=== PATIENT | female | born 1985 | race Two or more races ===

== ENCOUNTER 2021-05-26 16:10 | Emergency (ER) | payer MEDICAID ==
[~2021-05-26] VITALS: Ht 154.9 cm; Wt 81.6 kg
[2021-05-26 16:32] LABS: Basophils # (auto) 0 10 ^3/uL (0-0.2); Basophils % (auto) 0.6 % (0.0-2.0); Eosinophils # (auto) 0 10 ^3/uL (0-0.8); Eosinophils % (auto) 0.1 % (0.0-7.0); Hematocrit 40.5 % (36.0-46.0); Hemoglobin 13.8 g/dL (12.2-16.2); Lymphocytes % (auto) 25.7 % (10.0-50.0); Mean Corpuscular Hemoglobin 29.1 pg (28.0-32.0); Mean Corpuscular Volume 85.5 fL (80.0-100.0); Monocytes # (auto) 0.2 10 ^3/uL (0-1.3); Monocytes % (auto) 5.4 % (0.0-12.0); Neutrophils # (auto) 2.7 10 ^3/uL (1.6-8.6); Neutrophils % (auto) 68.2 % (37.0-80.0); Nucleated Red Blood Cells % 0.3 %; Red Blood Cells 4.74 10^6/uL (4.0-5.20)
[2021-05-26 16:50] LABS: Albumin 2.8 g/dL (3.4-5.0); BUN/Creatinine Ratio 11.1; Calcium 8.4 mg/dL (8.5-10.1)
[2021-05-26 16:59] LABS: Bilirubin, Total 0.8 mg/dL (0.2-1.0); CRP High Sensitivity 9.4 mg/dL (< 0.3); Total Protein 6.8 g/dL (6.4-8.2)
[2021-05-26 18:36] VITALS: BP 128/81
== END 2021-05-26 18:39 | disposition home or self-care (01) ==
LOC: ER 16:13
DX: U07.1 COVID-19 (principal); J12.82 Pneumonia due to coronavirus disease 2019
CPT/HCPCS: 36415; 71045; 80053; 82728; 84484; 85025; 86141; 87426; 93005

== ENCOUNTER 2021-05-29 03:35 | Inpatient (IN) | payer MEDICAID ==
[~2021-05-29] VITALS: Ht 154.9 cm; Wt 82.4 kg
[2021-05-29] MEDS ORDERED: ACETAMINOPHEN 650 mg PER 20.3 mL UD PO ONE (03:45)
[2021-05-29] MEDS ORDERED: AZITHROMYCIN 500MG/ 250ML 250 ML IV ONE (05:30)
[2021-05-29] MEDS ORDERED: DexAMETHasone SOD PHOS 10MG/1ML VIAL INJ IV ONE (05:30)
[2021-05-29 05:51] LABS: Basophils # (auto) 0 10 ^3/uL (0-0.2); Basophils % (auto) 0.1 % (0.0-2.0); Eosinophils # (auto) 0 10 ^3/uL (0-0.8); Hematocrit 37.3 % (36.0-46.0); Hemoglobin 12.8 g/dL (12.2-16.2); Lymphocytes # (auto) 0.9 10 ^3/uL (0.4-5.4); Lymphocytes % (auto) 11.8 % (10.0-50.0); Mean Corpuscular Hemoglobin 29.1 pg (28.0-32.0); Mean Corpuscular Hgb Conc. 34.4 g/dL (32.0-36.0); Mean Corpuscular Volume 84.5 fL (80.0-100.0); Monocytes # (auto) 0.3 10 ^3/uL (0-1.3); Monocytes % (auto) 4.5 % (0.0-12.0); Neutrophils # (auto) 6.1 10 ^3/uL (1.6-8.6); Neutrophils % (auto) 83.6 % (37.0-80.0); Red Blood Cells 4.41 10^6/uL (4.0-5.20); Red Cell Distribution Width 12.8 % (11.8-14.3); White Blood Cell 7.3 10^3/uL (4.4-10.8)
[2021-05-29 06:01] LABS: INR 0.94 (0.9-1.15)
[2021-05-29 06:12] LABS: Alanine Aminotransferase 70 U/L (13-56); Albumin 2.5 g/dL (3.4-5.0); Anion Gap 9 (5-15); Aspartate Aminotransferase 65 U/L (15-37); Blood Urea Nitrogen 9 mg/dL (7-18); Calcium 7.9 mg/dL (8.5-10.1); Carbon Dioxide 25 mmol/L (21-32); Chloride 104 mmol/L (98-107); Glucose 121 mg/dL (74-106); Magnesium 2.1 mg/dL (1.6-2.6); Potassium 3.3 mmol/L (3.5-5.1); Sodium 138 mmol/L (136-145)
[2021-05-29 06:14] LABS: Lactic Acid w/Reflex 2.5 mmol/L (0.4-2.0)
[2021-05-29 06:21] LABS: Alkaline Phosphatase 54 U/L (45-117); BUN/Creatinine Ratio 10.5; CRP High Sensitivity 7.83 mg/dL (< 0.3); GFR African American 95 mL/min; GFR Non-African American 79 mL/min; Total Protein 6.6 g/dL (6.4-8.2)
[2021-05-29] MEDS ORDERED: LACTATED RINGER'S 1,000 ML IV ONE (07:00)
[2021-05-29] MEDS ORDERED: MORPHINE SULFATE INJECTION 2 MG/ML SYRG IV PRN (08:45)
[2021-05-29] MEDS ORDERED: POTASSIUM EFFERVESENT TAB 25 MEQ PO ONE (08:45)
[2021-05-29] MEDS ORDERED: REMDESIVIR PER PHARMACY 0 ML IV SCH (08:45)
[2021-05-29] MEDS ORDERED: NITROGLYCERIN 0.4 MG SL TAB SL PRN (08:45)
[2021-05-29] MEDS ORDERED: diphenhdrAMINE HCL 50 MG/1 ML VL IV PRN (08:45)
[2021-05-29] MEDS ORDERED: PROMETHAZINE HCL 25 MG/ML 1ML IV PRN (09:15)
[2021-05-29] MEDS ORDERED: DEXTROSE (50%) 50ML SYRG IV PRN (09:15)
[2021-05-29] MEDS ORDERED: LACTULOSE 20Gm/30ML SOLN PO PRN (09:15)
[2021-05-29] MEDS: BUDESONIDE (INHALATION) 180 MCG IH IN SCH ×2 (10:00→22:17)
[2021-05-29] MEDS ORDERED: ACCU-CHEK COMFORT CURVE STRIP VI SCH (11:30)
[2021-05-29] MEDS: ENOXAPARIN SOD 40 MG/0.4 ML SYRINGE SC SCH ×2 (11:56→21:36)
[2021-05-29] MEDS: CHOLECALCIFEROL (VITD3) 2,000 UNIT CAP/TAB PO SCH (11:57)
[2021-05-29] MEDS: IVERMECTIN 3 MG TAB PO SCH (11:58)
[2021-05-29] MEDS: ASCORBIC ACID 1,000 MG TAB PO SCH (11:58)
[2021-05-29] MEDS: FLORASTOR (S. BOULARDII) 250 MG CAP PO SCH ×2 (11:59→21:36)
[2021-05-29] MEDS: DexAMETHasone SOD PHOS 10MG/1ML VIAL INJ IV SCH (12:00)
[2021-05-29] MEDS: ZINC SULFATE 220mg CAP or TAB PO SCH (12:00)
[2021-05-29] MEDS: AZITHROMYCIN 500MG/ 250ML 250 ML IV SCH (12:02)
[2021-05-29] MEDS: ACETAMINOPHEN 500 MG TAB PO PRN (13:11)
[2021-05-29] MEDS ORDERED: REMDESIVIR 200 MG in NS 210ml LOADING DOSE ADULT IV ONE (15:00)
[2021-05-29 17:53] VITALS: BP 118/70
[2021-05-29 20:00] VITALS: BP 107/68
[2021-05-29] MEDS: traMADol HCL 50 MG TAB PO PRN (21:37)
[2021-05-29 22:00] VITALS: BP 107/98
[2021-05-29] MEDS: ALBUTEROL SULF HFA 90MCG INH 200DOSE IN PRN (22:17)
[2021-05-30] VITALS (10 sets, daily range): BP systolic 93–123; BP diastolic 50–66
[2021-05-30] MEDS: guaiFENesin-DM 100/10mg/5ml SYR PO PRN ×4 (02:29→22:30)
[2021-05-30] MEDS: ACETAMINOPHEN 500 MG TAB PO PRN ×2 (05:15→21:37)
[2021-05-30 06:19] LABS: Basophils # (auto) 0 10 ^3/uL (0-0.2); Basophils % (auto) 0.1 % (0.0-2.0); Eosinophils # (auto) 0 10 ^3/uL (0-0.8); Hematocrit 34.6 % (36.0-46.0); Lymphocytes # (auto) 1.1 10 ^3/uL (0.4-5.4); Lymphocytes % (auto) 11.7 % (10.0-50.0); Mean Corpuscular Hemoglobin 29.4 pg (28.0-32.0); Mean Corpuscular Hgb Conc. 34.6 g/dL (32.0-36.0); Mean Corpuscular Volume 85.1 fL (80.0-100.0); Monocytes # (auto) 0.4 10 ^3/uL (0-1.3); Monocytes % (auto) 3.9 % (0.0-12.0); Neutrophils # (auto) 8.2 10 ^3/uL (1.6-8.6); Neutrophils % (auto) 84.3 % (37.0-80.0); Nucleated Red Blood Cells % 0.1 %; Red Blood Cells 4.06 10^6/uL (4.0-5.20); White Blood Cell 9.7 10^3/uL (4.4-10.8)
[2021-05-30 06:35] LABS: Potassium 3.6 mmol/L (3.5-5.1)
[2021-05-30 06:41] LABS: Albumin 2.3 g/dL (3.4-5.0); BUN/Creatinine Ratio 13.3; Bilirubin, Total 0.8 mg/dL (0.2-1.0); Calcium 8.3 mg/dL (8.5-10.1); Total Protein 6.3 g/dL (6.4-8.2)
[2021-05-30] MEDS: ALBUTEROL SULF HFA 90MCG INH 200DOSE IN PRN (06:54)
[2021-05-30] MEDS: BUDESONIDE (INHALATION) 180 MCG IH IN SCH ×2 (06:54→22:00)
[2021-05-30] MEDS: DexAMETHasone SOD PHOS 10MG/1ML VIAL INJ IV SCH (08:44)
[2021-05-30] MEDS: cefTRIAXone 1GM/50ML D5W 50 ML IV SCH (08:44)
[2021-05-30] MEDS: ZINC SULFATE 220mg CAP or TAB PO SCH (08:44)
[2021-05-30] MEDS: FLORASTOR (S. BOULARDII) 250 MG CAP PO SCH (08:45)
[2021-05-30] MEDS: CHOLECALCIFEROL (VITD3) 2,000 UNIT CAP/TAB PO SCH (08:45)
[2021-05-30] MEDS: ASCORBIC ACID 1,000 MG TAB PO SCH (08:45)
[2021-05-30] MEDS: IVERMECTIN 3 MG TAB PO SCH (08:45)
[2021-05-30] MEDS: traMADol HCL 50 MG TAB PO PRN (08:46)
[2021-05-30] MEDS: ENOXAPARIN SOD 40 MG/0.4 ML SYRINGE SC SCH ×2 (08:46→21:36)
[2021-05-30] MEDS: AZITHROMYCIN 500MG/ 250ML 250 ML IV SCH (10:00)
[2021-05-30] MEDS: REMDESIVIR 100mg 100 MG in SODIUM CHL 0.9% 230 ML IV SCH (15:16)
[2021-05-30 20:32] LABS: Urine Bacteria NONE SEEN /hpf (None Seen); Urine Blood Negative /uL (Negative); Urine Mucus FEW (None Seen); Urine Specific Gravity 1.026 (1.001-1.035); Urine WBC 3 /hpf (0 - 5)
[2021-05-31 05:00] VITALS: BP 117/67
[2021-05-31] MEDS: ACETAMINOPHEN 500 MG TAB PO PRN (05:23)
[2021-05-31] MEDS: guaiFENesin-DM 100/10mg/5ml SYR PO PRN ×3 (05:24→18:00)
[2021-05-31 05:55] LABS: Potassium 3.7 mmol/L (3.5-5.1)
[2021-05-31 06:02] LABS: Albumin 2.2 g/dL (3.4-5.0); BUN/Creatinine Ratio 21.5; Bilirubin, Total 0.8 mg/dL (0.2-1.0); Calcium 8.4 mg/dL (8.5-10.1); Total Protein 6.4 g/dL (6.4-8.2)
[2021-05-31] MEDS: ALBUTEROL SULF HFA 90MCG INH 200DOSE IN PRN ×2 (06:50→22:51)
[2021-05-31] MEDS: BUDESONIDE (INHALATION) 180 MCG IH IN SCH ×2 (06:51→22:00)
[2021-05-31] MEDS: DexAMETHasone SOD PHOS 10MG/1ML VIAL INJ IV SCH (08:27)
[2021-05-31] MEDS: cefTRIAXone 1GM/50ML D5W 50 ML IV SCH (08:27)
[2021-05-31] MEDS: ZINC SULFATE 220mg CAP or TAB PO SCH (08:28)
[2021-05-31] MEDS: AZITHROMYCIN 500MG/ 250ML 250 ML IV SCH (08:28)
[2021-05-31] MEDS: ASCORBIC ACID 1,000 MG TAB PO SCH (08:29)
[2021-05-31] MEDS: CHOLECALCIFEROL (VITD3) 2,000 UNIT CAP/TAB PO SCH (08:29)
[2021-05-31] MEDS: IVERMECTIN 3 MG TAB PO SCH (08:29)
[2021-05-31] MEDS: ENOXAPARIN SOD 40 MG/0.4 ML SYRINGE SC SCH ×2 (08:30→21:30)
[2021-05-31 09:00] VITALS: BP 89/57
[2021-05-31 13:00] VITALS: BP 111/67
[2021-05-31] MEDS: REMDESIVIR 100mg 100 MG in SODIUM CHL 0.9% 230 ML IV SCH (15:02)
[2021-05-31] MEDS ORDERED: FUROSEMIDE 20 MG/2 ML VIAL IV ONE (16:30)
[2021-05-31] MEDS ORDERED: POTASSIUM EFFERVESENT TAB 25 MEQ PO ONE (16:30)
[2021-05-31 17:00] VITALS: BP 102/61
[2021-05-31 22:00] VITALS: BP 109/60
[2021-06-01] MEDS: ACETAMINOPHEN 500 MG TAB PO PRN ×3 (01:30→21:26)
[2021-06-01] MEDS: guaiFENesin-DM 100/10mg/5ml SYR PO PRN ×2 (01:30→20:05)
[2021-06-01 05:00] VITALS: BP 89/54
[2021-06-01 07:14] LABS: Potassium 3.5 mmol/L (3.5-5.1)
[2021-06-01 07:25] LABS: Albumin 2.3 g/dL (3.4-5.0); BUN/Creatinine Ratio 22.7; Bilirubin, Total 0.8 mg/dL (0.2-1.0); Calcium 8.6 mg/dL (8.5-10.1); Total Protein 6.4 g/dL (6.4-8.2)
[2021-06-01 09:00] VITALS: BP 92/48
[2021-06-01] MEDS: cefTRIAXone 1GM/50ML D5W 50 ML IV SCH (09:45)
[2021-06-01] MEDS: DexAMETHasone SOD PHOS 10MG/1ML VIAL INJ IV SCH (09:46)
[2021-06-01] MEDS: FUROSEMIDE 20 MG/2 ML VIAL IV SCH ×2 (09:47→11:45)
[2021-06-01] MEDS: AZITHROMYCIN 500MG/ 250ML 250 ML IV SCH (09:48)
[2021-06-01] MEDS: ZINC SULFATE 220mg CAP or TAB PO SCH (09:48)
[2021-06-01] MEDS: POTASSIUM EFFERVESENT TAB 25 MEQ PO SCH (09:48)
[2021-06-01] MEDS: CHOLECALCIFEROL (VITD3) 2,000 UNIT CAP/TAB PO SCH (09:49)
[2021-06-01] MEDS: ENOXAPARIN SOD 40 MG/0.4 ML SYRINGE SC SCH ×2 (09:49→21:26)
[2021-06-01] MEDS: ASCORBIC ACID 1,000 MG TAB PO SCH (09:49)
[2021-06-01] MEDS: BUDESONIDE (INHALATION) 180 MCG IH IN SCH ×2 (11:29→21:42)
[2021-06-01] MEDS: ALBUTEROL SULF HFA 90MCG INH 200DOSE IN PRN ×2 (11:29→21:42)
[2021-06-01 13:00] VITALS: BP 96/50
[2021-06-01] MEDS: REMDESIVIR 100mg 100 MG in SODIUM CHL 0.9% 230 ML IV SCH (14:43)
[2021-06-01 17:00] VITALS: BP 95/51
[2021-06-01 21:48] VITALS: BP 105/69
[2021-06-02] MEDS: guaiFENesin-DM 100/10mg/5ml SYR PO PRN ×3 (02:28→22:37)
[2021-06-02 05:00] VITALS: BP 100/55
[2021-06-02 06:41] LABS: Potassium 3.9 mmol/L (3.5-5.1)
[2021-06-02 06:50] LABS: Albumin 2.3 g/dL (3.4-5.0); BUN/Creatinine Ratio 14.3; Bilirubin, Total 1.4 mg/dL (0.2-1.0); Calcium 8.8 mg/dL (8.5-10.1); Total Protein 6.6 g/dL (6.4-8.2)
[2021-06-02] MEDS: BUDESONIDE (INHALATION) 180 MCG IH IN SCH ×2 (07:18→20:35)
[2021-06-02] MEDS: ALBUTEROL SULF HFA 90MCG INH 200DOSE IN PRN ×2 (07:18→20:35)
[2021-06-02] MEDS: ACETAMINOPHEN 500 MG TAB PO PRN ×2 (07:37→22:36)
[2021-06-02] MEDS: FUROSEMIDE 20 MG/2 ML VIAL IV SCH (08:11)
[2021-06-02] MEDS: DexAMETHasone SOD PHOS 10MG/1ML VIAL INJ IV SCH (08:11)
[2021-06-02] MEDS: ZINC SULFATE 220mg CAP or TAB PO SCH (08:12)
[2021-06-02] MEDS: POTASSIUM EFFERVESENT TAB 25 MEQ PO SCH (08:12)
[2021-06-02] MEDS: ASCORBIC ACID 1,000 MG TAB PO SCH (08:12)
[2021-06-02] MEDS: CHOLECALCIFEROL (VITD3) 2,000 UNIT CAP/TAB PO SCH (08:13)
[2021-06-02] MEDS: ENOXAPARIN SOD 40 MG/0.4 ML SYRINGE SC SCH (08:13)
[2021-06-02] MEDS: cefTRIAXone 1GM/50ML D5W 50 ML IV SCH (10:42)
[2021-06-02 12:00] VITALS: BP 104/58
[2021-06-02] MEDS ORDERED: SALINE 0.65 % NASAL SPRAY 45ML BOTTLE EACHNOSTRI ONE (12:15)
[2021-06-02] MEDS: AZITHROMYCIN 500MG/ 250ML 250 ML IV SCH (12:15)
[2021-06-02] MEDS: IVERMECTIN 3 MG TAB PO SCH (12:22)
[2021-06-02] MEDS: TOCILIZUMAB 400 MG in SODIUM CHL 0.9% 80 ML IV SCH (13:01)
[2021-06-02] MEDS: REMDESIVIR 100mg 100 MG in SODIUM CHL 0.9% 230 ML IV SCH (15:01)
[2021-06-02 15:55] VITALS: BP 93/51
[2021-06-02] MEDS: SALINE 0.65 % NASAL SPRAY 45ML BOTTLE EACHNOSTRI SCH ×2 (15:59→21:54)
[2021-06-02] MEDS: Ensure HIGH Protein Chocolate 8oz Bottle PO SCH (18:12)
[2021-06-02] MEDS: ENOXAPARIN SOD 60 MG/0.6 ML SYRINGE SC SCH (21:53)
[2021-06-02 22:00] VITALS: BP 108/55
[2021-06-03 05:00] VITALS: BP 89/55
[2021-06-03] MEDS: SALINE 0.65 % NASAL SPRAY 45ML BOTTLE EACHNOSTRI SCH ×4 (06:00→22:31)
[2021-06-03 06:56] LABS: Basophils # (auto) 0 10 ^3/uL (0-0.2); Basophils % (auto) 0.1 % (0.0-2.0); Eosinophils # (auto) 0.1 10 ^3/uL (0-0.8); Eosinophils % (auto) 1.3 % (0.0-7.0); Hematocrit 38.2 % (36.0-46.0); Hemoglobin 13.3 g/dL (12.2-16.2); Lymphocytes # (auto) 1.2 10 ^3/uL (0.4-5.4); Lymphocytes % (auto) 13.5 % (10.0-50.0); Mean Corpuscular Hgb Conc. 34.9 g/dL (32.0-36.0); Mean Corpuscular Volume 86.2 fL (80.0-100.0); Monocytes # (auto) 0.4 10 ^3/uL (0-1.3); Monocytes % (auto) 4.6 % (0.0-12.0); Neutrophils # (auto) 7.1 10 ^3/uL (1.6-8.6); Neutrophils % (auto) 80.5 % (37.0-80.0); Red Blood Cells 4.43 10^6/uL (4.0-5.20); White Blood Cell 8.8 10^3/uL (4.4-10.8)
[2021-06-03 07:06] LABS: Calcium 8.9 mg/dL (8.5-10.1); Potassium 4.6 mmol/L (3.5-5.1)
[2021-06-03 07:08] LABS: BUN/Creatinine Ratio 21.9
[2021-06-03] MEDS: DexAMETHasone SOD PHOS 10MG/1ML VIAL INJ IV SCH (07:45)
[2021-06-03] MEDS: AZITHROMYCIN 500MG/ 250ML 250 ML IV SCH (07:45)
[2021-06-03] MEDS: FUROSEMIDE 20 MG/2 ML VIAL IV SCH (07:45)
[2021-06-03] MEDS: cefTRIAXone 1GM/50ML D5W 50 ML IV SCH (07:45)
[2021-06-03] MEDS: ZINC SULFATE 220mg CAP or TAB PO SCH (07:46)
[2021-06-03] MEDS: POTASSIUM EFFERVESENT TAB 25 MEQ PO SCH (07:46)
[2021-06-03] MEDS: ASCORBIC ACID 1,000 MG TAB PO SCH (07:46)
[2021-06-03] MEDS: IVERMECTIN 3 MG TAB PO SCH (07:46)
[2021-06-03] MEDS: ENOXAPARIN SOD 60 MG/0.6 ML SYRINGE SC SCH (07:47)
[2021-06-03] MEDS: CHOLECALCIFEROL (VITD3) 2,000 UNIT CAP/TAB PO SCH (07:47)
[2021-06-03] MEDS: Ensure HIGH Protein Chocolate 8oz Bottle PO SCH ×3 (08:00→22:31)
[2021-06-03 08:26] VITALS: BP 91/58
[2021-06-03 12:06] VITALS: BP 97/46
[2021-06-03] MEDS ORDERED: PIPERACILLIN-TAZOB 3.375GM 100 ML IV ONE (13:00)
[2021-06-03] MEDS: guaiFENesin-DM 100/10mg/5ml SYR PO PRN ×3 (13:42→23:22)
[2021-06-03] MEDS: TOCILIZUMAB 400 MG in SODIUM CHL 0.9% 80 ML IV SCH (13:51)
[2021-06-03] MEDS: BUDESONIDE (INHALATION) 180 MCG IH IN SCH ×2 (13:55→21:56)
[2021-06-03] MEDS: ALBUTEROL SULF HFA 90MCG INH 200DOSE IN PRN ×2 (13:56→21:56)
[2021-06-03 16:54] VITALS: BP 112/58
[2021-06-03] MEDS: ACETAMINOPHEN 500 MG TAB PO PRN (20:15)
[2021-06-03 22:00] VITALS: BP 112/65
[2021-06-03] MEDS: ENOXAPARIN SOD 40 MG/0.4 ML SYRINGE SC SCH (22:30)
[2021-06-03] MEDS: PIPERACILLIN-TAZOB 3.375GM 100 ML IV SCH (22:30)
[2021-06-04] VITALS (7 sets, daily range): BP systolic 80–112; BP diastolic 39–65
[2021-06-04] MEDS: PIPERACILLIN-TAZOB 3.375GM 100 ML IV SCH ×3 (06:17→21:26)
[2021-06-04] MEDS: ACETAMINOPHEN 500 MG TAB PO PRN (06:38)
[2021-06-04] MEDS: guaiFENesin-DM 100/10mg/5ml SYR PO PRN ×3 (06:39→22:23)
[2021-06-04] MEDS: SALINE 0.65 % NASAL SPRAY 45ML BOTTLE EACHNOSTRI SCH ×4 (06:39→21:26)
[2021-06-04] MEDS: ALBUTEROL SULF HFA 90MCG INH 200DOSE IN PRN ×2 (06:51→23:14)
[2021-06-04] MEDS: BUDESONIDE (INHALATION) 180 MCG IH IN SCH ×2 (06:52→21:17)
[2021-06-04] MEDS: Ensure HIGH Protein Chocolate 8oz Bottle PO SCH ×3 (08:00→18:00)
[2021-06-04] MEDS: DexAMETHasone SOD PHOS 10MG/1ML VIAL INJ IV SCH (10:00)
[2021-06-04] MEDS: FUROSEMIDE 20 MG/2 ML VIAL IV SCH (10:00)
[2021-06-04] MEDS: POTASSIUM EFFERVESENT TAB 25 MEQ PO SCH (10:20)
[2021-06-04] MEDS: AZITHROMYCIN 500MG/ 250ML 250 ML IV SCH (10:20)
[2021-06-04] MEDS: ENOXAPARIN SOD 40 MG/0.4 ML SYRINGE SC SCH (10:20)
[2021-06-04] MEDS: ASCORBIC ACID 1,000 MG TAB PO SCH (10:21)
[2021-06-04] MEDS: ZINC SULFATE 220mg CAP or TAB PO SCH (10:21)
[2021-06-04] MEDS: CHOLECALCIFEROL (VITD3) 2,000 UNIT CAP/TAB PO SCH (10:21)
[2021-06-04] MEDS: traMADol HCL 50 MG TAB PO PRN (14:33)
[2021-06-04] MEDS ORDERED: ALPRAZolam 0.25 MG TAB PO ONE (15:45)
[2021-06-04] MEDS: ENOXAPARIN SOD 60 MG/0.6 ML SYRINGE SC SCH (21:27)
[2021-06-04] MEDS: ACETAMINOPHEN 325 MG TAB PO PRN (22:23)
[2021-06-05 00:37] VITALS: BP 92/53
[2021-06-05] MEDS ORDERED: VORT10TA PO (00:56)
[2021-06-05] MEDS ORDERED: LIDO5DIS21 TOP (00:57)
[2021-06-05 05:00] VITALS: BP 81/51
[2021-06-05] MEDS: guaiFENesin-DM 100/10mg/5ml SYR PO PRN ×3 (05:10→19:54)
[2021-06-05] MEDS: PIPERACILLIN-TAZOB 3.375GM 100 ML IV SCH ×3 (05:35→21:30)
[2021-06-05] MEDS: SALINE 0.65 % NASAL SPRAY 45ML BOTTLE EACHNOSTRI SCH ×4 (05:35→21:30)
[2021-06-05] MEDS: ACETAMINOPHEN 325 MG TAB PO PRN (05:36)
[2021-06-05] MEDS ORDERED: SODIUM CHLORIDE 0.9% 1,000 ML IV ONE (06:00)
[2021-06-05] MEDS ORDERED: SODIUM CHLORIDE 0.9% 1,000 ML IV SCH (06:00)
[2021-06-05] MEDS: ALBUTEROL SULF HFA 90MCG INH 200DOSE IN PRN ×2 (07:15→19:35)
[2021-06-05] MEDS: BUDESONIDE (INHALATION) 180 MCG IH IN SCH ×2 (07:15→19:35)
[2021-06-05 09:00] VITALS: BP 90/45
[2021-06-05] MEDS: FUROSEMIDE 20 MG/2 ML VIAL IV SCH (10:00)
[2021-06-05] MEDS: Ensure HIGH Protein Chocolate 8oz Bottle PO SCH ×3 (10:26→17:54)
[2021-06-05] MEDS: DexAMETHasone SOD PHOS 10MG/1ML VIAL INJ IV SCH (10:27)
[2021-06-05] MEDS: POTASSIUM EFFERVESENT TAB 25 MEQ PO SCH (10:28)
[2021-06-05] MEDS: AZITHROMYCIN 500MG/ 250ML 250 ML IV SCH (10:28)
[2021-06-05] MEDS: ZINC SULFATE 220mg CAP or TAB PO SCH (10:28)
[2021-06-05] MEDS: CHOLECALCIFEROL (VITD3) 2,000 UNIT CAP/TAB PO SCH (10:29)
[2021-06-05] MEDS: ENOXAPARIN SOD 60 MG/0.6 ML SYRINGE SC SCH ×2 (10:29→21:30)
[2021-06-05] MEDS: ASCORBIC ACID 1,000 MG TAB PO SCH (10:29)
[2021-06-05 13:00] VITALS: BP 98/53
[2021-06-05 17:00] VITALS: BP 92/57
[2021-06-05] MEDS: DexAMETHasone SOD PHOS 4 MG/1ML SDV INJ IV SCH (21:30)
[2021-06-05] MEDS: ALPRAZolam 0.25 MG TAB PO PRN (21:31)
[2021-06-05 22:00] VITALS: BP 105/60
[2021-06-06 05:00] VITALS: BP 133/79
[2021-06-06] MEDS: SALINE 0.65 % NASAL SPRAY 45ML BOTTLE EACHNOSTRI SCH ×4 (05:25→21:42)
[2021-06-06] MEDS: PIPERACILLIN-TAZOB 3.375GM 100 ML IV SCH ×3 (05:25→21:42)
[2021-06-06] MEDS: guaiFENesin-DM 100/10mg/5ml SYR PO PRN ×3 (05:48→22:13)
[2021-06-06 06:41] LABS: Basophils # (auto) 0 10 ^3/uL (0-0.2); Basophils % (auto) 0.3 % (0.0-2.0); Eosinophils # (auto) 0 10 ^3/uL (0-0.8); Hematocrit 40.7 % (36.0-46.0); Hemoglobin 13.7 g/dL (12.2-16.2); Lymphocytes # (auto) 0.6 10 ^3/uL (0.4-5.4); Lymphocytes % (auto) 5.5 % (10.0-50.0); Mean Corpuscular Hemoglobin 28.9 pg (28.0-32.0); Mean Corpuscular Hgb Conc. 33.7 g/dL (32.0-36.0); Mean Corpuscular Volume 85.8 fL (80.0-100.0); Monocytes # (auto) 0.3 10 ^3/uL (0-1.3); Monocytes % (auto) 2.3 % (0.0-12.0); Neutrophils # (auto) 10.8 10 ^3/uL (1.6-8.6); Neutrophils % (auto) 91.9 % (37.0-80.0); Red Blood Cells 4.75 10^6/uL (4.0-5.20); Red Cell Distribution Width 12.8 % (11.8-14.3); White Blood Cell 11.7 10^3/uL (4.4-10.8)
[2021-06-06 07:00] LABS: Potassium 4.9 mmol/L (3.5-5.1)
[2021-06-06 07:08] LABS: Albumin 2.6 g/dL (3.4-5.0); BUN/Creatinine Ratio 15.1; Bilirubin, Total 0.7 mg/dL (0.2-1.0); Total Protein 6.7 g/dL (6.4-8.2)
[2021-06-06 09:00] VITALS: BP 109/69
[2021-06-06] MEDS: POTASSIUM EFFERVESENT TAB 25 MEQ PO SCH (10:00)
[2021-06-06] MEDS: BUDESONIDE (INHALATION) 180 MCG IH IN SCH ×2 (10:16→22:00)
[2021-06-06] MEDS: DexAMETHasone SOD PHOS 4 MG/1ML SDV INJ IV SCH ×2 (10:20→21:42)
[2021-06-06] MEDS: Ensure HIGH Protein Chocolate 8oz Bottle PO SCH ×3 (10:20→17:12)
[2021-06-06] MEDS: AZITHROMYCIN 500MG/ 250ML 250 ML IV SCH (10:21)
[2021-06-06] MEDS: ENOXAPARIN SOD 60 MG/0.6 ML SYRINGE SC SCH ×2 (10:21→21:42)
[2021-06-06] MEDS: ZINC SULFATE 220mg CAP or TAB PO SCH (10:21)
[2021-06-06] MEDS: CHOLECALCIFEROL (VITD3) 2,000 UNIT CAP/TAB PO SCH (10:21)
[2021-06-06] MEDS: ASCORBIC ACID 1,000 MG TAB PO SCH (10:22)
[2021-06-06] MEDS: ACETAMINOPHEN 325 MG TAB PO PRN (10:32)
[2021-06-06 17:00] VITALS: BP 104/60
[2021-06-06] MEDS: ALPRAZolam 0.25 MG TAB PO PRN (21:43)
[2021-06-06 22:00] VITALS: BP 94/51
[2021-06-06] MEDS: ALBUTEROL SULF HFA 90MCG INH 200DOSE IN PRN (22:55)
[2021-06-07 01:23] VITALS: BP 94/51
[2021-06-07] MEDS: guaiFENesin-DM 100/10mg/5ml SYR PO PRN ×3 (02:31→12:23)
[2021-06-07 05:00] VITALS: BP 96/53
[2021-06-07] MEDS: SALINE 0.65 % NASAL SPRAY 45ML BOTTLE EACHNOSTRI SCH ×4 (05:39→22:27)
[2021-06-07] MEDS: PIPERACILLIN-TAZOB 3.375GM 100 ML IV SCH ×3 (05:39→22:27)
[2021-06-07] MEDS: BUDESONIDE (INHALATION) 180 MCG IH IN SCH ×2 (06:52→21:01)
[2021-06-07] MEDS: ALBUTEROL SULF HFA 90MCG INH 200DOSE IN PRN (06:52)
[2021-06-07] MEDS: Ensure HIGH Protein Chocolate 8oz Bottle PO SCH ×3 (08:30→18:09)
[2021-06-07 08:47] VITALS: BP 93/47
[2021-06-07] MEDS: ZINC SULFATE 220mg CAP or TAB PO SCH (08:53)
[2021-06-07] MEDS: CHOLECALCIFEROL (VITD3) 2,000 UNIT CAP/TAB PO SCH (08:53)
[2021-06-07] MEDS: ENOXAPARIN SOD 60 MG/0.6 ML SYRINGE SC SCH ×2 (08:53→22:28)
[2021-06-07] MEDS: DexAMETHasone SOD PHOS 4 MG/1ML SDV INJ IV SCH ×2 (08:54→22:27)
[2021-06-07] MEDS: ASCORBIC ACID 1,000 MG TAB PO SCH (08:54)
[2021-06-07] MEDS: AZITHROMYCIN 500MG/ 250ML 250 ML IV SCH (10:44)
[2021-06-07 13:00] VITALS: BP 127/81
[2021-06-07 17:00] VITALS: BP 130/75
[2021-06-07 22:00] VITALS: BP 134/64
[2021-06-07] MEDS: ALPRAZolam 0.25 MG TAB PO PRN (22:45)
[2021-06-08] MEDS: guaiFENesin-DM 100/10mg/5ml SYR PO PRN ×3 (00:20→21:28)
[2021-06-08 05:13] VITALS: BP 108/70
[2021-06-08] MEDS: SALINE 0.65 % NASAL SPRAY 45ML BOTTLE EACHNOSTRI SCH ×4 (05:57→21:28)
[2021-06-08] MEDS: PIPERACILLIN-TAZOB 3.375GM 100 ML IV SCH ×3 (05:58→21:37)
[2021-06-08 07:43] LABS: Basophils # (auto) 0 10 ^3/uL (0-0.2); Basophils % (auto) 0.2 % (0.0-2.0); Eosinophils # (auto) 0 10 ^3/uL (0-0.8); Hematocrit 41.2 % (36.0-46.0); Lymphocytes # (auto) 1.3 10 ^3/uL (0.4-5.4); Lymphocytes % (auto) 9.4 % (10.0-50.0); Mean Corpuscular Hemoglobin 29.1 pg (28.0-32.0); Mean Corpuscular Hgb Conc. 33.9 g/dL (32.0-36.0); Mean Corpuscular Volume 85.8 fL (80.0-100.0); Monocytes # (auto) 0.5 10 ^3/uL (0-1.3); Monocytes % (auto) 3.6 % (0.0-12.0); Neutrophils # (auto) 11.9 10 ^3/uL (1.6-8.6); Neutrophils % (auto) 86.8 % (37.0-80.0); Red Cell Distribution Width 13.2 % (11.8-14.3); White Blood Cell 13.8 10^3/uL (4.4-10.8)
[2021-06-08] MEDS: Ensure HIGH Protein Chocolate 8oz Bottle PO SCH ×3 (08:00→18:19)
[2021-06-08] MEDS: ALBUTEROL SULF HFA 90MCG INH 200DOSE IN PRN ×2 (08:10→19:48)
[2021-06-08] MEDS: BUDESONIDE (INHALATION) 180 MCG IH IN SCH ×2 (08:10→19:48)
[2021-06-08 09:00] VITALS: BP 99/53
[2021-06-08] MEDS: DexAMETHasone SOD PHOS 4 MG/1ML SDV INJ IV SCH ×2 (09:13→21:28)
[2021-06-08] MEDS: CHOLECALCIFEROL (VITD3) 2,000 UNIT CAP/TAB PO SCH (09:14)
[2021-06-08] MEDS: ZINC SULFATE 220mg CAP or TAB PO SCH (09:14)
[2021-06-08] MEDS: ASCORBIC ACID 1,000 MG TAB PO SCH (09:14)
[2021-06-08] MEDS: AZITHROMYCIN 500MG/ 250ML 250 ML IV SCH (09:14)
[2021-06-08] MEDS: ENOXAPARIN SOD 60 MG/0.6 ML SYRINGE SC SCH ×2 (09:15→21:30)
[2021-06-08 13:00] VITALS: BP 102/63
[2021-06-08 17:00] VITALS: BP 125/65
[2021-06-08 22:20] VITALS: BP 117/55
[2021-06-09] MEDS: TEMAZEPAM 15 MG CAP PO PRN (00:41)
[2021-06-09] MEDS: SALINE 0.65 % NASAL SPRAY 45ML BOTTLE EACHNOSTRI SCH ×4 (05:22→20:52)
[2021-06-09] MEDS: PIPERACILLIN-TAZOB 3.375GM 100 ML IV SCH ×3 (05:22→20:58)
[2021-06-09 05:30] VITALS: BP 108/65
[2021-06-09] MEDS: ALBUTEROL SULF HFA 90MCG INH 200DOSE IN PRN ×2 (07:07→22:01)
[2021-06-09] MEDS: BUDESONIDE (INHALATION) 180 MCG IH IN SCH ×2 (07:07→22:00)
[2021-06-09] MEDS: Ensure HIGH Protein Chocolate 8oz Bottle PO SCH ×3 (08:37→18:00)
[2021-06-09] MEDS: guaiFENesin-DM 100/10mg/5ml SYR PO PRN ×3 (08:37→20:59)
[2021-06-09] MEDS: ZINC SULFATE 220mg CAP or TAB PO SCH (08:38)
[2021-06-09] MEDS: AZITHROMYCIN 500MG/ 250ML 250 ML IV SCH (08:38)
[2021-06-09] MEDS: DexAMETHasone SOD PHOS 4 MG/1ML SDV INJ IV SCH (08:38)
[2021-06-09] MEDS: ASCORBIC ACID 1,000 MG TAB PO SCH (08:38)
[2021-06-09] MEDS: ENOXAPARIN SOD 60 MG/0.6 ML SYRINGE SC SCH (08:39)
[2021-06-09] MEDS: CHOLECALCIFEROL (VITD3) 2,000 UNIT CAP/TAB PO SCH (08:39)
[2021-06-09 09:00] VITALS: BP 96/50
[2021-06-09] MEDS ORDERED: POTASSIUM CHLORIDE 8 MEQ TAB PO ONE (12:00)
[2021-06-09] MEDS ORDERED: FLUCONAZOLE 100 MG TAB PO ONE (12:00)
[2021-06-09] MEDS ORDERED: FUROSEMIDE 20 MG TAB PO ONE (12:00)
[2021-06-09 13:00] VITALS: BP 113/70
[2021-06-09 17:00] VITALS: BP 102/64
[2021-06-09] MEDS: ENOXAPARIN SOD 40 MG/0.4 ML SYRINGE SC SCH (20:59)
[2021-06-09 22:00] VITALS: BP 105/75
[2021-06-09 23:02] VITALS: BP 102/64
[2021-06-10] MEDS: guaiFENesin-DM 100/10mg/5ml SYR PO PRN ×2 (01:15→04:59)
[2021-06-10] MEDS: SALINE 0.65 % NASAL SPRAY 45ML BOTTLE EACHNOSTRI SCH ×4 (04:59→20:36)
[2021-06-10 05:00] VITALS: BP 92/52
[2021-06-10] MEDS: PIPERACILLIN-TAZOB 3.375GM 100 ML IV SCH ×3 (05:06→20:36)
[2021-06-10 06:29] LABS: Calcium 9.2 mg/dL (8.5-10.1); Potassium 4.8 mmol/L (3.5-5.1)
[2021-06-10 06:32] LABS: Basophils # (auto) 0 10 ^3/uL (0-0.2); Basophils % (auto) 0.2 % (0.0-2.0); Eosinophils # (auto) 0.2 10 ^3/uL (0-0.8); Eosinophils % (auto) 1.9 % (0.0-7.0); Hematocrit 43.9 % (36.0-46.0); Lymphocytes # (auto) 1.7 10 ^3/uL (0.4-5.4); Lymphocytes % (auto) 17.3 % (10.0-50.0); Mean Corpuscular Hemoglobin 29.7 pg (28.0-32.0); Mean Corpuscular Hgb Conc. 34.3 g/dL (32.0-36.0); Mean Corpuscular Volume 86.8 fL (80.0-100.0); Monocytes # (auto) 0.3 10 ^3/uL (0-1.3); Monocytes % (auto) 3.2 % (0.0-12.0); Neutrophils # (auto) 7.8 10 ^3/uL (1.6-8.6); Neutrophils % (auto) 77.4 % (37.0-80.0); Nucleated Red Blood Cells % 0.1 %; Red Blood Cells 5.05 10^6/uL (4.0-5.20); Red Cell Distribution Width 13.4 % (11.8-14.3); White Blood Cell 10.1 10^3/uL (4.4-10.8)
[2021-06-10] MEDS: BUDESONIDE (INHALATION) 180 MCG IH IN SCH ×2 (06:50→22:15)
[2021-06-10] MEDS: ALBUTEROL SULF HFA 90MCG INH 200DOSE IN PRN ×2 (06:50→22:15)
[2021-06-10] MEDS: AZITHROMYCIN 500MG/ 250ML 250 ML IV SCH (08:37)
[2021-06-10] MEDS: ENOXAPARIN SOD 40 MG/0.4 ML SYRINGE SC SCH ×2 (08:37→20:36)
[2021-06-10] MEDS: DexAMETHasone SOD PHOS 10MG/1ML VIAL INJ IV SCH (08:38)
[2021-06-10] MEDS: Ensure HIGH Protein Chocolate 8oz Bottle PO SCH ×3 (08:38→18:00)
[2021-06-10] MEDS: CHOLECALCIFEROL (VITD3) 2,000 UNIT CAP/TAB PO SCH (08:38)
[2021-06-10] MEDS: ZINC SULFATE 220mg CAP or TAB PO SCH (08:39)
[2021-06-10] MEDS: FLUCONAZOLE 100 MG TAB PO SCH (08:39)
[2021-06-10] MEDS: ASCORBIC ACID 1,000 MG TAB PO SCH (08:39)
[2021-06-10 09:00] VITALS: BP 103/65
[2021-06-10] MEDS: PROMETHAZINE W/CODEINE 5 ML ORAL SYRUP PO PRN ×2 (11:54→20:42)
[2021-06-10 13:00] VITALS: BP 100/57
[2021-06-10 17:00] VITALS: BP 112/69
[2021-06-10 22:04] VITALS: BP 118/74
[2021-06-11 05:00] VITALS: BP 106/73
[2021-06-11] MEDS: PIPERACILLIN-TAZOB 3.375GM 100 ML IV SCH ×3 (05:40→22:45)
[2021-06-11] MEDS: SALINE 0.65 % NASAL SPRAY 45ML BOTTLE EACHNOSTRI SCH ×4 (05:40→22:44)
[2021-06-11] MEDS: ALBUTEROL SULF HFA 90MCG INH 200DOSE IN PRN ×2 (07:00→21:21)
[2021-06-11] MEDS: BUDESONIDE (INHALATION) 180 MCG IH IN SCH ×2 (07:01→21:21)
[2021-06-11] MEDS: PROMETHAZINE W/CODEINE 5 ML ORAL SYRUP PO PRN ×4 (08:16→22:45)
[2021-06-11] MEDS: Ensure HIGH Protein Chocolate 8oz Bottle PO SCH ×3 (08:47→18:15)
[2021-06-11 09:00] VITALS: BP 107/62
[2021-06-11] MEDS: DexAMETHasone SOD PHOS 10MG/1ML VIAL INJ IV SCH (10:43)
[2021-06-11] MEDS: AZITHROMYCIN 500MG/ 250ML 250 ML IV SCH (10:43)
[2021-06-11] MEDS: FLUCONAZOLE 100 MG TAB PO SCH (10:44)
[2021-06-11] MEDS: ASCORBIC ACID 1,000 MG TAB PO SCH (10:44)
[2021-06-11] MEDS: ZINC SULFATE 220mg CAP or TAB PO SCH (10:44)
[2021-06-11] MEDS: CHOLECALCIFEROL (VITD3) 2,000 UNIT CAP/TAB PO SCH (10:45)
[2021-06-11] MEDS: ENOXAPARIN SOD 40 MG/0.4 ML SYRINGE SC SCH ×2 (10:45→22:45)
[2021-06-11] MEDS ORDERED: diphenhdrAMINE HCL 50 MG/1 ML VL IV PRN (11:00)
[2021-06-11] MEDS ORDERED: DOCUSATE SOD 100 MG CAP PO ONE (11:00)
[2021-06-11 13:00] VITALS: BP 123/67
[2021-06-11 17:09] VITALS: BP 98/53
[2021-06-11 22:00] VITALS: BP 114/69
[2021-06-11] MEDS: DOCUSATE SOD 100 MG CAP PO SCH (22:45)
[2021-06-12] MEDS: PROMETHAZINE W/CODEINE 5 ML ORAL SYRUP PO PRN ×4 (03:52→20:16)
[2021-06-12 05:04] VITALS: BP 103/64
[2021-06-12] MEDS: SALINE 0.65 % NASAL SPRAY 45ML BOTTLE EACHNOSTRI SCH ×4 (06:12→21:19)
[2021-06-12] MEDS: PIPERACILLIN-TAZOB 3.375GM 100 ML IV SCH (06:12)
[2021-06-12] MEDS: Ensure HIGH Protein Chocolate 8oz Bottle PO SCH ×3 (08:09→17:57)
[2021-06-12] MEDS: BUDESONIDE (INHALATION) 180 MCG IH IN SCH ×2 (08:27→20:31)
[2021-06-12] MEDS: ALBUTEROL SULF HFA 90MCG INH 200DOSE IN PRN ×2 (08:27→20:32)
[2021-06-12 08:58] VITALS: BP 111/63
[2021-06-12] MEDS: DexAMETHasone SOD PHOS 10MG/1ML VIAL INJ IV SCH (09:28)
[2021-06-12] MEDS: AZITHROMYCIN 500MG/ 250ML 250 ML IV SCH (09:28)
[2021-06-12] MEDS: ZINC SULFATE 220mg CAP or TAB PO SCH (09:29)
[2021-06-12] MEDS: CHOLECALCIFEROL (VITD3) 2,000 UNIT CAP/TAB PO SCH (09:29)
[2021-06-12] MEDS: DOCUSATE SOD 100 MG CAP PO SCH ×2 (09:29→21:18)
[2021-06-12] MEDS: ENOXAPARIN SOD 40 MG/0.4 ML SYRINGE SC SCH ×2 (09:29→21:18)
[2021-06-12] MEDS: FLUCONAZOLE 100 MG TAB PO SCH (09:29)
[2021-06-12] MEDS: ASCORBIC ACID 1,000 MG TAB PO SCH (09:30)
[2021-06-12 13:00] VITALS: BP 120/85
[2021-06-12 17:00] VITALS: BP 96/56
[2021-06-12 22:00] VITALS: BP 117/70
[2021-06-13] MEDS: PROMETHAZINE W/CODEINE 5 ML ORAL SYRUP PO PRN ×5 (00:21→21:09)
[2021-06-13] MEDS: TEMAZEPAM 15 MG CAP PO PRN ×2 (01:55→22:32)
[2021-06-13 05:00] VITALS: BP 110/77
[2021-06-13] MEDS: SALINE 0.65 % NASAL SPRAY 45ML BOTTLE EACHNOSTRI SCH ×4 (05:56→21:08)
[2021-06-13] MEDS: BUDESONIDE (INHALATION) 180 MCG IH IN SCH ×2 (06:31→19:55)
[2021-06-13] MEDS: ALBUTEROL SULF HFA 90MCG INH 200DOSE IN PRN (06:31)
[2021-06-13] MEDS: Ensure HIGH Protein Chocolate 8oz Bottle PO SCH ×3 (08:28→18:35)
[2021-06-13 09:00] VITALS: BP 104/69
[2021-06-13] MEDS: ZINC SULFATE 220mg CAP or TAB PO SCH (10:02)
[2021-06-13] MEDS: ASCORBIC ACID 1,000 MG TAB PO SCH (10:02)
[2021-06-13] MEDS: DOCUSATE SOD 100 MG CAP PO SCH ×2 (10:02→21:08)
[2021-06-13] MEDS: ENOXAPARIN SOD 40 MG/0.4 ML SYRINGE SC SCH ×2 (10:02→21:08)
[2021-06-13] MEDS: CHOLECALCIFEROL (VITD3) 2,000 UNIT CAP/TAB PO SCH (10:02)
[2021-06-13] MEDS: levoFLOXacin 500 MG TAB PO SCH (10:02)
[2021-06-13] MEDS: DexAMETHasone SOD PHOS 4 MG/1ML SDV INJ IV SCH (10:03)
[2021-06-13] MEDS: FLUCONAZOLE 100 MG TAB PO SCH (10:03)
[2021-06-13 13:00] VITALS: BP 105/74
[2021-06-13 17:18] VITALS: BP 120/73
[2021-06-13 22:00] VITALS: BP 107/57
[2021-06-14] MEDS: PROMETHAZINE W/CODEINE 5 ML ORAL SYRUP PO PRN ×3 (04:31→14:07)
[2021-06-14 05:00] VITALS: BP 103/68
[2021-06-14] MEDS: SALINE 0.65 % NASAL SPRAY 45ML BOTTLE EACHNOSTRI SCH ×2 (06:27→12:09)
[2021-06-14 08:00] VITALS: BP 124/64
[2021-06-14 09:16] VITALS: BP 91/54
[2021-06-14] MEDS: levoFLOXacin 500 MG TAB PO SCH (09:52)
[2021-06-14] MEDS: DOCUSATE SOD 100 MG CAP PO SCH (09:52)
[2021-06-14] MEDS: DexAMETHasone SOD PHOS 4 MG/1ML SDV INJ IV SCH (09:52)
[2021-06-14] MEDS: ZINC SULFATE 220mg CAP or TAB PO SCH (09:52)
[2021-06-14] MEDS: Ensure HIGH Protein Chocolate 8oz Bottle PO SCH ×2 (09:52→12:09)
[2021-06-14] MEDS: ASCORBIC ACID 1,000 MG TAB PO SCH (09:53)
[2021-06-14] MEDS: ENOXAPARIN SOD 40 MG/0.4 ML SYRINGE SC SCH (09:53)
[2021-06-14] MEDS: CHOLECALCIFEROL (VITD3) 2,000 UNIT CAP/TAB PO SCH (09:53)
[2021-06-14] MEDS: ALBUTEROL SULF HFA 90MCG INH 200DOSE IN PRN (11:11)
[2021-06-14] MEDS: BUDESONIDE (INHALATION) 180 MCG IH IN SCH (11:11)
[2021-06-14 13:14] VITALS: BP 116/66
== END 2021-06-14 17:10 | disposition home or self-care (01) | DRG 720 ==
LOC: ER 03:35 → TELE 08:33 → TELE-EAST 17:40 → TELE-E-ADS 06-05 01:57 → TELE-EAST 06-08 05:46
PROVIDERS: ADMIT Internal Medicine; ATTEND Internal Medicine
PROC: XW033E5 Introduction of Remdesivir Anti-infective into Peripheral Vein, Percutaneous Approach, New Technology Group 5 (ICD-10-PCS; 2021-05-29)
PROC: XW13325 Transfusion of Convalescent Plasma (Nonautologous) into Peripheral Vein, Percutaneous Approach, New Technology Group 5 (ICD-10-PCS; principal; 2021-05-30)
PROC: XW033H5 Introduction of Tocilizumab into Peripheral Vein, Percutaneous Approach, New Technology Group 5 (ICD-10-PCS; 2021-06-02)
DX: A41.89 Other specified sepsis (principal); J96.01 Acute respiratory failure with hypoxia; J12.82 Pneumonia due to coronavirus disease 2019; U07.1 COVID-19; D89.839 Cytokine release syndrome, grade unspecified; E87.6 Hypokalemia; R73.9 Hyperglycemia, unspecified; E66.9 Obesity, unspecified; R04.0 Epistaxis; Z79.82 Long term (current) use of aspirin; Z68.36 Body mass index [BMI] 36.0-36.9, adult
CPT/HCPCS: 36415; 36600; 71045; 80048; 80053; 81001; 82728; 82805; 82962; 83036; 83605; 83615; 83735; 83880; 84132; 84484; 84702; 85025; 85379; 85610; 86141; 86850; 86900; 86901; 87040; 87426; 93005; 94640; 96361; 96365; 96366; 96367; 96372; 96375; G0378; J0696; J1100; J2543

== ENCOUNTER 2022-05-20 06:35 | Emergency (ER) | payer MEDICAID ==
[~2022-05-20] VITALS: Ht 157.5 cm; Wt 84.5 kg
[2022-05-20] MEDS ORDERED: cefTRIAXone SOD 1,000 MG VL IM ONE (07:45)
[2022-05-20] MEDS ORDERED: methylPREDNISolone SOD SUCC 125 MG/2 ML VL IM ONE (07:45)
[2022-05-20] MEDS ORDERED: DOXY-332 PO (07:57)
[2022-05-20] MEDS ORDERED: PRED20TA2 PO (07:57)
[2022-05-20 09:40] VITALS: BP 115/76
== END 2022-05-20 10:14 | disposition home or self-care (01) ==
LOC: ER 06:35
DX: J06.9 Acute upper respiratory infection, unspecified (principal); J84.10 Pulmonary fibrosis, unspecified; Z20.822 Contact with and (suspected) exposure to COVID-19
CPT/HCPCS: 36415; 71046; 87426; 96372; 99284; J0696; J2930